=== PATIENT | male | born 1950 | race Caucasian/White ===

== ENCOUNTER 2022-07-02 08:29 | Outpatient (CLI) | payer MEDICARE, SELFPAY ==
[2022-07-02 12:20] LABS: Chloride* 107 mmol/L (96-114)
[2022-07-02 12:21] LABS: Potassium* 4.2 mmol/L (3.6-5.1); Sodium* 139 mmol/L (135-149)
[2022-07-02 12:23] LABS: Alkaline Phosphatase* 96 U/L (40-150); Aspartate Amino Transferase* 29 U/L (12-35); Bilirubin Total* 1.9 mg/dL (0.1-1.5); Blood Urea Nitrogen* 16 mg/dL (7-30); Carbon Dioxide* 27 mmol/L (20-32); Cholesterol* 142 mg/dL (90-199); Creatinine* 0.9 mg/dL (0.5-1.5); Estimated Glomerular Filt Rate 92 ml/min; Glucose* 99 mg/dL (60-115); Total Protein* 6.9 g/dL (6.0-8.3); Triglycerides* 112 mg/dL (40-149)
[2022-07-02 12:24] LABS: Alanine Aminotransferase* 29 U/L (4-50); Calcium* 8.9 mg/dL (8.4-10.6); HDL Cholesterol* 43 mg/dL (>=40); LDL Cholesterol Calculated 77 mg/dL (<100)
== END 2022-07-02 08:30 | disposition home or self-care (01) ==
LOC: NFLDREF 08:29
PROVIDERS: PCP Family Medicine; Visit Provider Family Medicine
DX: E78.5 Hyperlipidemia, unspecified (principal); I10 Essential (primary) hypertension
CPT/HCPCS: 80053; 80061

== ENCOUNTER 2022-11-23 08:54 | Outpatient (CLI) | payer MEDICARE, SELFPAY | END 2022-11-23 08:55 | disposition home or self-care (01) | PROVIDERS: PCP Family Medicine; Visit Provider Family Medicine | DX: I10 Essential (primary) hypertension (principal); E78.5 Hyperlipidemia, unspecified | CPT/HCPCS: 80048 ==

== ENCOUNTER 2023-07-08 08:32 | Outpatient (CLI) | payer MEDICARE, SELFPAY | END 2023-07-08 08:33 | disposition home or self-care (01) | LOC: NFLDREF 07-09 06:46 | PROVIDERS: PCP Family Medicine; Referring Provider Family Medicine; Visit Provider Family Medicine | DX: E78.5 Hyperlipidemia, unspecified (principal); I10 Essential (primary) hypertension | CPT/HCPCS: 80053; 80061 ==

== ENCOUNTER 2023-08-11 08:55 | Outpatient (CLI) | payer MEDICARE, SELFPAY | END 2023-08-11 08:56 | disposition home or self-care (01) | LOC: NFLDREF 08:56 | PROVIDERS: PCP Family Medicine; Visit Provider Family Medicine | DX: I10 Essential (primary) hypertension (principal); E78.5 Hyperlipidemia, unspecified | CPT/HCPCS: 80048 ==

== ENCOUNTER 2024-10-16 09:10 | Outpatient (CLI) | payer MEDICARE, SELFPAY | END 2024-10-16 09:11 | disposition home or self-care (01) | LOC: NFLDREF 10-19 23:18 | PROVIDERS: PCP Family Medicine; Referring Provider Family Medicine; Visit Provider Family Medicine | DX: E78.5 Hyperlipidemia, unspecified (principal); I10 Essential (primary) hypertension; Z12.5 Encounter for screening for malignant neoplasm of prostate | CPT/HCPCS: 80053; 80061; G0103 ==